=== PATIENT | male | born 1975 | race Caucasian/White ===

== ENCOUNTER 2019-05-13 19:07 | Emergency (ER) | payer OTHER ==
[~2019-05-13] VITALS: Ht 175.3 cm; Wt 115.3 kg
[2019-05-13 19:26] VITALS: Ht 175.3 cm; Wt 115.3 kg
[2019-05-13] MEDS ORDERED: PRAV20TA63 PO (21:39)
[2019-05-13] MEDS ORDERED: GLIP10TA14 PO (21:40)
[2019-05-13] MEDS ORDERED: CLON0.2T5 PO (21:40)
[2019-05-13] MEDS ORDERED: HYDR12.58 PO (21:40)
[2019-05-13] MEDS ORDERED: LISI40TA3 PO (21:41)
[2019-05-13] MEDS ORDERED: METF100010 PO (21:41)
--- NOTE | 2019-05-13 22:00 | ERD ---
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 Prior to 6 PM this evening, the patient reports that his vision in his right eye was clear. However, between 6 PM and 6:30 PM, the patient reports that his vision started to become very cloudy. He reports that his vision looks like he is seeing through a dense fog. It is very statically. Now all he sees our figures. He is unable to differe ntiate fingers. The patient does not endorse any pain or pressure. He does not endorse any trauma or injury. He does not endorse any alleviating or exacerbating factors. ROS All systems reviewed and are negative except as per history of present illness. Medications Home Meds Reported Medications Lisinopril* (Lisinopril*) 40 Mg Tablet, 40 MG PO DAILY, #30 TAB 05/13/19 Metformin Hcl* (Metformin Hcl*) 1,000 Mg Tablet, 1000 MG PO WITH BREAKFAST DINNE, #60 TAB 05/13/19 Glipizide* (Glipizide*) 10 Mg Tablet, 10 MG PO AC BREAKFAST DINNER, TAB 05/13/19 Clonidine Hcl* (Clonidine Hcl*) 0.2 Mg Tablet, 0.2 MG PO DAILY, TAB 05/13/19 Hydrochlorothiazide* (Hydrochlorothiazide*) 12.5 Mg Tablet, 12.5 MG PO DAILY, #30 TAB 05/13/19 Pravastatin Sodium* (Pravastatin Sodium*) 20 Mg Tablet, 20 MG PO HS, TAB 05/13/19 Allergies Allergies: Coded Allergies: No Known Allergy (Unverified , 05/13/19) PMhx/Soc Medical and Surgical Hx: pt denies Medical Hx, pt denies Surgical Hx History of Surgery: No Anesthesia Reaction: No Hx Neurological Disorder: No Hx Respiratory Disorders: No Hx Cardiac Disorders: Yes (Hypertension, hyperlipidemia, diabetes) Hx Psychiatric Problems: No Hx Miscellaneous Medical Probl: Yes (Retinal detachment, vitreous hemorrhage) Hx Alcohol Use: No Hx Substance Use: No Hx Tobacco Use: No Smoking Status: Never smoker FmHx Family History: diabetes Physical Exam Vitals Vital Signs Date Temp Pulse Resp B/P (MAP) Pulse Ox O2 O2 Flow FiO2 Time Delivery Rate 05/13/19 79 16 122/87 Room Air 22:24 (99) 05/13/19 98.6 83 18 172/90 98 19:26 (117) Physical Exam Const: No acute distress Head: Atraumatic Eyes: Normal Conjunctiva. Anisocoria, left pupil greater than right pupil, chronic. Significant decreased visual acuity. Unable to differentiate fingers in both eyes individually and combined. ENT: Normal External Ears, Nose and Mouth. Neck: Full range of motion. No meningismus. Resp: Clear to auscultation bilaterally Cardio: Regular rate and rhythm, no murmurs Abd: Soft, non tender, non distended. Normal bowel sounds Skin: No petechiae or rashes Back: No midline or flank tenderness Ext: No cyanosis, or edema Neur: Awake and alert Psych: Normal Mood and Affect Procedures/MDM MDM The patient's presentation warrants further investigation. Previous medical records, if available, were reviewed. IMAGING Imaging and Radiology interpretation reviewed. Ultrasound ocular IMPRESSION: 1. Linear echogenic material within the right posterior chamber equivocal for retinal detachment of the right globe. 2. Echogenic material within the posterior chamber of the left globe possibly debris or hemorrhage. Electronically viewed and signed by Physician Aj on 05/13/2019 21:49 TREATMENT/DISPOSITION The patient's symptoms are consistent with a retinal detachment. He has had this in the past. I spoke with Dr. Bowles from the patient's ophthalmology group. He did not feel the patient required emergent transfer to a facility with ophthalmology. The ophthalmology group has an urgent clinic on Saturdays and is able to see the patient first thing in the morning for treatment of this retinal detachment. The echogenic material within the left globe appears to be chronic. The patient has his family were given instructions to follow-up at his ophthalmology groups [place] clinic at 8:30 AM tomorrow morning. The patient understands the urgency of this matter. He understands the importance of being prompted to this appointment. In speaking with the on-call bank sales and service manager, he did not feel that any further intervention in the emergency department was indicated. There is no evidence of trauma or injury. There is no evidence of globe rupture. There is no evidence of lens dislocation. I do not suspect glaucoma. There is no evidence of iritis. I do not suspect endophthalmitis. DISCHARGE Upon reevaluation of the patient, symptoms have improved. No emergent diagnoses were identified. At this time, I feel that the patient stable for discharge. The patient was instructed to follow-up with a primary care physician in 1-3 days. The patient will be given strict precautions with which to return to the emergency department. Prescriptions: None The patient's blood pressure was elevated at greater than 120/80 while in the emergency department. The patient was otherwise stable with no evidence of hypertensive urgency or emergency. The patient does not require admission for blood pressure control. I have discussed with the patient the risks of hypertension. I have instructed the patient to return to the ER for any new or worsening symptoms including chest pain, shortness of breath, headache, blurred vision, confusion, nausea, vomiting or LOC. I have advised the patient to follow up with the primary care physician for outpatient monitoring and treatment for hypertension in 1-3 days. Disclaimer: Inadvertent spelling and grammatical errors are likely due to EHR/dictation software use and do not reflect on the overall quality of patient care. Note that the electronic time recorded on this note does not necessarily reflect the actual time of the patient encounter. Departure Diagnosis: Primary Impression: Right retinal detachment Additional Impression: Vision loss Condition: Stable Patient Instructions: Diabetic Retinopathy: Having Vitrectomy, Retinal Detachment, Understanding Vision Problems Additional Instructions: We spoke with your bank sales and service manager group who is able to see you first thing in the morning at 8:30 AM in the [facility] office. The address is below: [address] [place] [address]. [address] ([facility], 3rd floor) [place] [address] Please arrive on time. Thank you for for coming to [facility] for your care today. Please ask your nurse or provider if you have questions about your care today and do not leave until all your questions have been answered. Please use any medications given as directed and follow-up with your doctor (or the doctor you were referred to) in the next 1-3 days. If you do not have a primary care doctor you may follow up at the [facility] or [facility] (listed below). You may also use motrin and tylenol as needed for fever and/or pain unless instructed otherwise by your provider or nurse. Indications for more urgent follow-up have been discussed, but you may return to the Emergency Department at ANY time for any worrisome or worsening symptoms. If you have abdominal pain, please know that no test or exam you received is perfect and you should follow up within 8 hours for continued pain. If you had any imaging studies today, such as an X-Ray or CT Scan, these studies will be reviewed later by a radiologist. You will be called if there are important findings that were not identified today, so make sure the contact information you provided at registration is correct. If you received any narcotic pain control medicine today, such as Vicodin, Morphine or Dilaudid, your coordination and judgment may be affected for a number of hours. Please do not drive or operate heavy machinery, and you may want someone to assist you at home. If you were given a prescription for narcotic medication, be aware that it is very addictive- use sparingly and only if necessary. PLEASE SEEK FURTHER EVALUATION AND MANAGEMENT AT YOUR DOCTORS OFFICE WITHIN THE NEXT 1-3 DAYS. IT IS YOUR RESPONSIBILITY TO MAKE AN APPOINTMENT FOR FOLOW-UP CARE. IF YOU HAVE A PRIMARY DOCTOR, PLEASE CALL THEIR OFFICE TO SCHEDULE AN APPOINTMENT FOR FOLLOW UP. IF YOU DO NOT HAVE A PRIMARY DOCTOR YOU CAN CALL OUR PHYSICIAN REFERRAL HOTLINE AT IF YOU CAN NOT AFFORD TO SEE A PHYSICIAN YOU CAN CHOSE FROM THE FOLLOWING [facility] CLINICS: [facility] [address] [facility]. [facility] [address] [facility] [facility] [address] [facility]. [facility] [address] [facility]. [facility] [address] [facility]. [facility]. [address] [place] May 13, 2019 22:00
[2019-05-13 22:24] VITALS: BP 122/87; PULSE 79; RESP 16
== END 2019-05-13 22:36 | disposition home or self-care (01) ==
LOC: E/R 19:07
DX: H53.131 Sudden visual loss, right eye (principal); H43.11 Vitreous hemorrhage, right eye; H33.21 Serous retinal detachment, right eye
CPT/HCPCS: 76536; Z7502